=== PATIENT | female | born 1955 | race Caucasian/White ===

== ENCOUNTER 2017-11-17 10:07 | Emergency (ER) | payer MEDICARE, MEDICAID ==
[2017-11-17 10:24] VITALS: BP 143/95
[2017-11-17] MEDS ORDERED: Ondansetron 4 MG/2 ML SDV IVPUSH ONE (11:21)
[2017-11-17] MEDS ORDERED: Ketorolac 30 MG/ML SDV IVPUSH ONE (11:21)
--- NOTE | 2017-11-17 11:24 | EDM.PDOC ---
ED HPI GENERAL MEDICAL PROBLEM - General Chief Complaint: Flank Pain Stated Complaint: PAIN ON LEFT SIDE FEELS LIKE VOMITING Time Seen by Provider: 11/17/17 11:08 Source of Information: Reports: Patient History Limitations: Reports: No Limitations - History of Present Illness INITIAL COMMENTS - FREE TEXT/NARRATIVE: 62 yo female presents to ER with left flank pain radiating into left upper ABD. pain started yesterday and has progressively worsened. She does have a hx of kidney stones. She does not feel that this is a kidney stone. Last BM was this AM small. denies dysuria. nausea without emesis. afebrile. 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 History: Reports: Musculoskeletal History: Reports: Fracture Neurological History: Reports: Migraines Psychiatric History: Reports: Addiction, Depression, Other (See Below) Other Psychiatric History: recovery alcoholic - Infectious Disease History Infectious Disease History: Reports: Chicken Pox - Past Surgical History HEENT Surgical History: Reports: Adenoidectomy, Tonsillectomy GI Surgical History: Reports: Appendectomy, Cholecystectomy, Hernia, Abdominal Musculoskeletal Surgical History: Reports: Arthroscopic Knee, Shoulder Surgery Social & Family History - Tobacco Use Smoking Status *Q: Current Every Day Smoker Years of Tobacco use: 40 Packs/Tins Daily: 0.5 - Caffeine Use Caffeine Use: Reports: Coffee, Soda - Recreational Drug Use Recreational Drug Use: No - Living Situation & Occupation Living situation: Reports: with Significant Other Occupation: Disabled ED ROS GENERAL - Review of Systems Review Of Systems: See Below Constitutional: Denies: Fever, Chills, Malaise Respiratory: Denies: Shortness of Breath, Wheezing Cardiovascular: Denies: Chest Pain GI/Abdominal: Reports: Abdominal Pain, Decreased Appetite, Nausea. Denies: Diarrhea, Vomiting : Reports: Flank Pain. Denies: Dysuria, Hematuria Musculoskeletal: Reports: Back Pain Neurological: Denies: Dizziness, Headache ED EXAM, GI/ABD - Physical Exam Exam: See Below Exam Limited By: No Limitations General Appearance: Alert, WD/WN, No Apparent Distress Head: Atraumatic, Normocephalic Respiratory/Chest: No Respiratory Distress, Lungs Clear, Normal Breath Sounds, Chest Non-Tender. No: Crackles, Rhonchi, Wheezing Cardiovascular: Regular Rate, Rhythm, No Murmur, No Rub GI/Abdominal Exam: Normal Bowel Sounds, Soft, No Distention, Tender (RUQ) Back Exam: CVA Tenderness (L). No: CVA Tenderness (R), Vertebral Tenderness Neurological: Alert, Oriented Psychiatric: Normal Affect, Normal Mood Skin Exam: Warm, Dry, Intact Course - Vital Signs Last Recorded V/S: Last Vital Signs Temp 35.8 C 11/17/17 10:25 Pulse 73 11/17/17 10:25 Resp 17 11/17/17 10:25 BP 143/95 H 11/17/17 10:25 Pulse Ox 93 L 11/17/17 10:25 - Orders/Labs/Meds Orders: Active Orders 24 hr Category Date Time Status Sodium Chloride 0.9% [Normal Saline] 1,000 ml Med 11/17/17 11:30 Active IV ASDIRECTED Medication Orders Sodium Chloride (Normal Saline) 1,000 mls @ 999 mls/hr IV ASDIRECTED ALDA Last Admin: 11/17/17 11:36 Dose: 999 mls/hr Labs: Laboratory Tests 11/17/17 11/17/17 11/17/17 Range/Units 11:22 11:23 11:23 WBC 7.7 (4.5-11.0) K/uL RBC 5.36 (3.30-5.50) M/uL Hgb 16.3 H D (12.0-15.0) g/dL Hct 49.2 H (36.0-48.0) % MCV 92 (80-98) fL MCH 30 (27-31) pg MCHC 33 (32-36) % Plt Count 214 (150-400) K/uL Neut % (Auto) 56 (36-66) % Lymph % (Auto) 32 (24-44) % [place] % (Auto) 10 H (2-6) % Eos % (Auto) 2 (2-4) % Baso % (Auto) 0 (0-1) % Sodium 140 (140-148) mmol/L Potassium 4.4 (3.6-5.2) mmol/L Chloride 106 (100-108) mmol/L Carbon Dioxide 26 (21-32) mmol/L Anion Gap 8.0 (5.0-14.0) mmol/L BUN 21 H (7-18) mg/dL Creatinine 1.1 H (0.6-1.0) mg/dL Est Cr Clr Drug Dosing 44.43 mL/min Estimated GFR (MDRD) 50 L (>60) Glucose 99 (74-106) mg/dL Calcium 9.2 (8.5-10.1) mg/dL Total Bilirubin 0.5 (0.2-1.0) mg/dL AST 26 (15-37) U/L ALT 44 (12-78) U/L Alkaline Phosphatase 139 H (46-116) U/L Total Protein 6.9 (6.4-8.2) g/dL Albumin 3.4 (3.4-5.0) g/dL Globulin 3.5 (2.3-3.5) g/dL Albumin/Globulin Ratio 1.0 L (1.2-2.2) Lipase (73-393) U/L Urine Color Yellow Urine Appearance Slightly cloudy Urine pH 5.0 (4.5-8.0) Ur Specific [place] 1.020 (1.008-1.030) Urine Protein Negative (NEGATIVE) mg/dL Urine Glucose (UA) Normal (NEGATIVE) mg/dL Urine Ketones Negative (NEGATIVE) mg/dL Urine Occult Blood Negative (NEGATIVE) Urine Nitrite Negative (NEGATIVE) Urine Bilirubin Small (NEGATIVE) Urine Urobilinogen Normal (NORMAL) mg/dL Ur Leukocyte Esterase Negative (NEGATIVE) Urine RBC 0-5 (0-5) Urine WBC 0-5 (0-5) Ur Epithelial Cells Moderate Amorphous Sediment Not seen Urine Bacteria Rare Urine Mucus Not seen 11/17/17 Range/Units 12:40 WBC (4.5-11.0) K/uL RBC (3.30-5.50) M/uL Hgb (12.0-15.0) g/dL Hct (36.0-48.0) % MCV (80-98) fL MCH (27-31) pg MCHC (32-36) % Plt Count (150-400) K/uL Neut % (Auto) (36-66) % Lymph % (Auto) (24-44) % [place] % (Auto) (2-6) % Eos % (Auto) (2-4) % Baso % (Auto) (0-1) % Sodium (140-148) mmol/L Potassium (3.6-5.2) mmol/L Chloride (100-108) mmol/L Carbon Dioxide (21-32) mmol/L Anion Gap (5.0-14.0) mmol/L BUN (7-18) mg/dL Creatinine (0.6-1.0) mg/dL Est Cr Clr Drug Dosing mL/min Estimated GFR (MDRD) (>60) Glucose (74-106) mg/dL Calcium (8.5-10.1) mg/dL Total Bilirubin (0.2-1.0) mg/dL AST (15-37) U/L ALT (12-78) U/L Alkaline Phosphatase (46-116) U/L Total Protein (6.4-8.2) g/dL Albumin (3.4-5.0) g/dL Globulin (2.3-3.5) g/dL Albumin/Globulin Ratio (1.2-2.2) Lipase 264 (73-393) U/L Urine Color Urine Appearance Urine pH (4.5-8.0) Ur Specific [place] (1.008-1.030) Urine Protein (NEGATIVE) mg/dL Urine Glucose (UA) (NEGATIVE) mg/dL Urine Ketones (NEGATIVE) mg/dL Urine Occult Blood (NEGATIVE) Urine Nitrite (NEGATIVE) Urine Bilirubin (NEGATIVE) Urine Urobilinogen (NORMAL) mg/dL Ur Leukocyte Esterase (NEGATIVE) Urine RBC (0-5) Urine WBC (0-5) Ur Epithelial Cells Amorphous Sediment Urine Bacteria Urine Mucus Meds: Medications Generic Name Dose Route Start Last Admin Trade Name Freq PRN Reason Stop Dose Admin Sodium Chloride 1,000 mls @ 999 mls/hr 11/17/17 11:30 11/17/17 11:36 Normal Saline IV 999 mls/hr ASDIRECTED ALDA Administration Discontinued Medications Generic Name Dose Route Start Last Admin Trade Name Freq PRN Reason Stop Dose Admin Al Hydroxide/Mg Hydroxide 15 0 ml 11/17/17 12:40 11/17/17 13:05 ml/ Lidocaine HCl 15 ml PO 11/17/17 12:41 15 ml ONETIME ONE Administration Hydromorphone HCl 0.5 mg 11/17/17 12:03 11/17/17 12:10 Dilaudid IVPUSH 11/17/17 12:04 0.5 mg ONETIME ONE Administration Ketorolac Tromethamine 30 mg 11/17/17 11:21 11/17/17 11:35 Toradol IVPUSH 11/17/17 11:22 30 mg ONETIME ONE Administration Ondansetron HCl 4 mg 11/17/17 11:21 11/17/17 11:35 Zofran IVPUSH 11/17/17 11:22 4 mg ONETIME ONE Administration Pantoprazole Sodium 40 mg 11/17/17 12:40 11/17/17 13:05 Protonix Iv IVPUSH 11/17/17 12:41 40 mg ONETIME ONE Administration - Re-Assessments/Exams Free Text/Narrative Re-Assessment/Exam: 11/17/17 13:32 dramatic relief of pain with GI cocktail. pt does take nexium on a daily basis. Departure - Departure Time of Disposition: 13:32 Disposition: Home, Self-Care 01 Condition: Good Clinical Impression: Epigastric pain - Discharge Information Referrals: PCP,None [Primary Care Provider] - Forms: ED Department Discharge Additional Instructions: continue daily nexium advance diet as tolerated increase fluid intake with goal of 1.5 Liters per day follow-up with primary care or return to ER with new or worsening symptoms - My Orders Last 24 Hours: My Active Orders 11/17/17 11:30 Sodium Chloride 0.9% [Normal Saline] 1,000 ml IV ASDIRECTED - Assessment/Plan Last 24 Hours: My Active Orders 11/17/17 11:30 Sodium Chloride 0.9% [Normal Saline] 1,000 ml IV ASDIRECTED
[2017-11-17] MEDS ORDERED: Sodium Chloride 0.9% 1,000 ML IV SCH (11:30)
[2017-11-17] MEDS ORDERED: HYDROmorphone 0.5 MG/0.5 ML Syringe IVPUSH ONE (12:03)
[2017-11-17] MEDS ORDERED: Pantoprazole 40 MG Vial IVPUSH ONE (12:40)
[2017-11-17] MEDS ORDERED: Alum Hydrox/Mag Hydrox/Simeth 15 ML, Lidocaine 2% 15 ML PO ONE ×2 (12:40)
== END 2017-11-17 13:50 | disposition home or self-care (01) ==
LOC: JP.ED 10:07
DX: R10.13 Epigastric pain (principal); F17.210 Nicotine dependence, cigarettes, uncomplicated; Z88.5 Allergy status to narcotic agent; Z79.899 Other long term (current) drug therapy
CPT/HCPCS: 36415; 80053; 81001; 83690; 85025; 96361; 96374; 96375; 99284; A9270; C9113; J1170; J1885; J2405; J7030

== ENCOUNTER 2020-09-02 05:55 | Day surgery (SDC) | payer MEDICARE, MEDICAID ==
[2020-09-02] MEDS ORDERED: Albuterol/Ipratropium 3.0-0.5 MG/3 ML Neb Soln NEB ONE (06:25)
[2020-09-02] MEDS ORDERED: fentaNYL 100 MCG/2 ML SDV ONE (07:20)
[2020-09-02] MEDS ORDERED: Midazolam 1 MG/ML 2 ML SDV ONE (07:20)
[2020-09-02] MEDS ORDERED: Propofol 200 MG/20 ML SDV ONE (07:20)
[2020-09-02] MEDS ORDERED: Dextrose 5%-Lactated Ringers 1,000 ML IV SCH (08:15)
[2020-09-02 09:38] VITALS: BP 134/89; PULSE 73
--- NOTE | 2020-09-18 13:23 | OR ---
DATE OF PROCEDURE: 09/02/2020 SURGEON: Chino Vila MD PREOPERATIVE DIAGNOSIS: Worsening gastroesophageal reflux disease. POSTOPERATIVE DIAGNOSES: 1. Large hiatal hernia with extensive inflammation of the larynx and pharynx and ulcerated gastroesophageal reflux disease refractory to medical management. 2. Moderate antral gastritis. OPERATIVE PROCEDURES: Esophagogastroduodenoscopy with: 1. Biopsy of esophagogastric junction for histologic evaluation. 2. Biopsies of antrum for CLOtest. ANESTHESIA: IV sedation. INDICATIONS FOR PROCEDURE: This is a 65-year-old presenting with worsening gastroesophageal disease. The patient's previous surgical history includes Marie-en-Y gastric bypass, which was subsequently reversed due to ongoing problems with stricturing. She now presents with severe reflux symptoms despite ongoing medical management. This includes waking up with coughing up bilious-type material as well as a chronically irritated larynx and pharynx clinically. The plan is to proceed with upper GI endoscopy with biopsies and/or dilation as indicated. Potential risks including bleeding and perforation were discussed, and the patient wishes to proceed. DETAILS OF PROCEDURE: The patient was taken to the operating room, placed in a left lateral decubitus position. IV sedation was administered, after which the upper GI endoscope was passed orally through the length of the esophagus and stomach with retroflexion view of the fundus and thereafter through the pyloric channel into the junction of third and fourth portions of the duodenum. Findings included markedly reddened larynx and pharynx. As one passed into the esophagus, the upper esophageal sphincter and esophageal body were unremarkable; however, as one passed into the more distal esophagus, there was extensive ulcerated gastroesophageal reflux disease. The areas of ulcer were covered with fibrinous exudate. There was no stricturing, plaquing, or other signs of neoplasia. 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 Within the antrum, there was some patchy redness to moderate extent. The pyloric channel and visualized portion of the duodenum were unremarkable. At this point, biopsies were obtained from the antrum and sent for CLOtest for H pylori. Multiple biopsies were obtained from the distal esophagus and sent for histologic evaluation. Minimal bleeding from the biopsy sites was seen, and the procedure was then concluded. Plan will be to see the patient on Saturday regarding repair of the large hiatal hernia, which was seen at the time of the upper endoscopy today most likely by means of treating the hiatal hernia and then a proximal gastrectomy with Marie-en-Y reconstruction. We will review this with the patient as well as go over dietary guidelines in the upcoming appointment. Chino Vila MD /[id number]
== END 2020-09-02 10:02 | disposition home or self-care (01) ==
LOC: JP.SDS 05:55
PROVIDERS: ATTEND Surgery
DX: K21.9 Gastro-esophageal reflux disease without esophagitis (principal); K44.9 Diaphragmatic hernia without obstruction or gangrene; K29.70 Gastritis, unspecified, without bleeding; J06.0 Acute laryngopharyngitis; K22.10 Ulcer of esophagus without bleeding; F17.200 Nicotine dependence, unspecified, uncomplicated; E78.5 Hyperlipidemia, unspecified; E66.9 Obesity, unspecified; J45.909 Unspecified asthma, uncomplicated; Z88.5 Allergy status to narcotic agent; Z68.41 Body mass index [BMI] 40.0-44.9, adult
CPT/HCPCS: 43239; 87081; 88305; 94640; J2250; J2704; J3010; J7121; J7620-GY

== ENCOUNTER 2020-09-13 05:32 | Inpatient (IN) | payer MEDICARE, MEDICAID ==
[~2020-09-13 05:32] MED LIST: Scopolamine 1.5 MG Transdermal Patch TOP ONE
[2020-09-13] MEDS ORDERED: Acetaminophen 500 MG Tab PO ONE (05:40)
[2020-09-13] MEDS ORDERED: Celecoxib 200 MG Cap PO ONE (05:40)
[2020-09-13] MEDS ORDERED: Dextrose 5%-Lactated Ringers 1,000 ML IV SCH (06:00)
[2020-09-13] MEDS ORDERED: Albuterol/Ipratropium 3.0-0.5 MG/3 ML Neb Soln NEB ONE ×2 (06:30→12:30)
[2020-09-13] MEDS ORDERED: cefOXitin 2 GM in Sodium Chloride 0.9% 50 ML IV ONE (06:30)
[2020-09-13] MEDS ORDERED: Succinylcholine 200 MG/10 ML MDV ONE (07:07)
[2020-09-13] MEDS ORDERED: Ondansetron 4 MG/2 ML SDV ONE (07:07)
[2020-09-13] MEDS ORDERED: Dexamethasone 4 MG/ML SDV ONE (07:07)
[2020-09-13] MEDS ORDERED: Propofol 200 MG/20 ML SDV ONE (07:07)
[2020-09-13] MEDS ORDERED: Glycopyrrolate 0.2 MG/ML 5 ML MDV ONE (07:07)
[2020-09-13] MEDS ORDERED: fentaNYL 250 MCG/5 ML SDV ONE ×2 (07:07→08:16)
[2020-09-13] MEDS ORDERED: Rocuronium 50 MG/5 ML Vial ONE ×2 (07:07→09:29)
[2020-09-13] MEDS ORDERED: Neostigmine Methylsulfate 1 MG/ML 5 ML Syringe ONE (07:07)
[2020-09-13] MEDS ORDERED: Ketamine 500 MG/5 ML MDV IV SCH (07:30)
[2020-09-13] MEDS ORDERED: Magnesium Sulfate 3 GM in Sodium Chloride 0.9% 100 ML IV SCH ×2 (07:30)
[2020-09-13] MEDS ORDERED: Ketamine 50 MG in Sodium Chloride 0.9% 49.5 ML IV SCH (07:30)
[2020-09-13] MEDS ORDERED: Magnesium Sulfate 3.5 GM in Sodium Chloride 0.9% 250 ML IV ONE ×2 (08:00)
[2020-09-13] MEDS: cefOXitin 2 GM Vial ONE ×3 (08:30→11:30)
[2020-09-13] MEDS ORDERED: Labetalol 20 MG/4 ML Syringe ONE (09:31)
[2020-09-13] MEDS ORDERED: Lactated Ringers 1,000 ML ONE ×2 (09:42→10:30)
[2020-09-13] MEDS: Meropenem 500 MG SDV ONE ×2 (11:00→11:30)
[2020-09-13] MEDS ORDERED: fentaNYL 100 MCG/2 ML SDV ONE (11:02)
[2020-09-13] MEDS ORDERED: cefOXitin 2 GM Vial ONE (11:35)
[2020-09-13] MEDS ORDERED: hydrOXYzine HCL 100 MG/2 ML SDV IM ONE (12:28)
[2020-09-13] MEDS ORDERED: fentaNYL 100 MCG/2 ML SDV IVPUSH ONE (12:28)
[2020-09-13] MEDS ORDERED: Non-Formulary Medication 1 Each IV ONE (13:38)
[2020-09-13] MEDS: Dextrose 5%-Lactated Ringers 1,000 ML IV SCH (13:45)
[2020-09-13] MEDS ORDERED: Labetalol 20 MG/4 ML Syringe IVPUSH PRN (14:00)
[2020-09-13] MEDS ORDERED: Metoclopramide 10 MG/2 ML SDV IVPUSH PRN (14:00)
[2020-09-13] MEDS ORDERED: Albuterol/Ipratropium 3.0-0.5 MG/3 ML Neb Soln INH PRN (14:00)
[2020-09-13] MEDS ORDERED: Acetaminophen 500 MG Tab PO PRN (14:00)
[2020-09-13] MEDS ORDERED: Calcium Gluconate 10% 1 GM/10 ML SDV IVPUSH PRN (14:00)
[2020-09-13] MEDS ORDERED: cefOXitin 2 GM in Sodium Chloride 0.9% 50 ML IV SCH (14:00)
[2020-09-13] MEDS ORDERED: diphenhydrAMINE 50 MG/ML SDV IVPUSH PRN (14:00)
[2020-09-13] MEDS ORDERED: Ondansetron 4 MG/2 ML SDV IVPUSH PRN (14:00)
[2020-09-13] MEDS: Albuterol/Ipratropium 3.0-0.5 MG/3 ML Neb Soln INH SCH ×2 (14:21→22:19)
[2020-09-13] MEDS: hydrOXYzine HCL 100 MG/2 ML SDV IM PRN (14:39)
[2020-09-13] MEDS ORDERED: Naloxone 0.4 MG/ML SDV IV PRN (15:00)
[2020-09-13] MEDS: HYDROmorphone/Normal Saline 15 MG/30 ML PCA IV PRN (15:04)
[2020-09-13] MEDS ORDERED: MVI, Adult with Vitamin K 10 ML, Thiamine 200 MG, Zinc/Copper/Manganese/Selenium 1 ML i... IV SCH ×4 (16:00)
[2020-09-13] MEDS ORDERED: Pantoprazole 40 MG Vial IVPUSH SCH (16:00)
[2020-09-13] MEDS: Acetaminophen 500 MG Tab PO SCH (16:35)
[2020-09-13] MEDS: cefOXitin 2 GM in Sodium Chloride 0.9% 50 ML IV SCH ×2 (17:26→22:10)
[2020-09-13] MEDS: Heparin Sodium 5,000 Units/ML Vial SUBCUT SCH (22:10)
[2020-09-14] MEDS: Acetaminophen 500 MG Tab PO SCH ×4 (00:07→21:06)
[2020-09-14] MEDS: ADVAIR 250/50 INHALER (PTOM) INH SCH ×3 (00:07→21:06)
[2020-09-14] MEDS: Montelukast 5 MG Tab.Chew PO SCH ×2 (00:07→21:06)
[2020-09-14] MEDS: busPIRone 10 MG Tab PO SCH ×2 (00:07→09:08)
[2020-09-14] MEDS ORDERED: Iopamidol 612 MG/ML 50 ML SDV IV PRN (03:47)
[2020-09-14] MEDS: Dextrose 5%-Lactated Ringers 1,000 ML IV SCH ×2 (04:51→09:33)
[2020-09-14] MEDS: cefOXitin 2 GM in Sodium Chloride 0.9% 50 ML IV SCH ×4 (04:51→22:11)
[2020-09-14] MEDS: Albuterol/Ipratropium 3.0-0.5 MG/3 ML Neb Soln INH SCH ×4 (07:19→21:05)
[2020-09-14] MEDS ORDERED: Nicotine 14 MG/24 Hr Patch TRDERM SCH (09:00)
[2020-09-14] MEDS: hydrOXYzine HCL 100 MG/2 ML SDV IM PRN (09:02)
[2020-09-14] MEDS: Heparin Sodium 5,000 Units/ML Vial SUBCUT SCH ×2 (09:06→21:05)
[2020-09-14] MEDS: Celecoxib 200 MG Cap PO SCH ×2 (09:09→21:06)
[2020-09-14] MEDS: Aspirin 81 MG Tab.Chew PO SCH (09:09)
[2020-09-14] MEDS: Cetirizine 10 MG Tab PO SCH (09:09)
[2020-09-14] MEDS: SCOPOLAMINE PATCH CHECK TOP SCH (09:13)
--- NOTE | 2020-09-14 09:16 | CR ---
UGI Limited HISTORY: Postbariatric surgery FINDINGS: Patient swallowed water-soluble contrast. Upright views of the abdomen show no evidence of extravasation or obstruction. There are 2 surgical drains in the left upper quadrant. IMPRESSION: Status post bariatric surgery No extravasation or obstruction seen
[2020-09-14] MEDS: Cyclobenzaprine 10 MG Tab PO PRN (11:09)
[2020-09-14] MEDS ORDERED: LORazepam 2 MG/ML SDV IVPUSH PRN (12:05)
--- NOTE | 2020-09-14 12:35 | PN ---
DATE OF SERVICE: 09/14/2020 SUBJECTIVE: Gabrielle is postoperative day #1. Vital signs have been stable. Her pain has been controlled with the CHARTER PILOT. Oral intake on a step 1 diet is 240. Urine output via Stewart catheter is 1425. She did have 1 emesis of 150 mL and MOISE drains put out 70 and 125 mL of a light red drainage. REVIEW OF SYSTEMS: Remainder of review of systems negative for any pertinent positives and negatives. OBJECTIVE: GENERAL: Gabrielle Tucker is a pleasant 65-year-old female. She is alert and orientated. VITAL SIGNS: TPR is 97.1, 82, 18, blood pressure 131/75. HEENT: Negative. NECK: Supple. HEART: Regular rate and rhythm. LUNGS: Revealed coarse rhonchi. She does have good air exchange. Has a loose sounding cough. ABDOMEN: Dressing dry and intact. Abdominal binder on. EXTREMITIES: Without peripheral edema. ASSESSMENT: Exploratory laparotomy with: 1. Esophagogastrectomy with Marie-en-Y esophagojejunostomy. 2. Repair of recurrent paraesophageal hernia. 3. Partial left hepatic lobectomy. 4. Small-bowel resection. 5. Placement of Interceed mesh. POSTOPERATIVE DIAGNOSES: 1. Severe reflux with recurrent paraesophageal hernia. 2. Very extensive intraabdominal adhesions. 3. Section of the small bowel ischemic after takedown of adhesions. 4. Lateral aspect hepatic lobe extensively devascularized after dissection. 5. Date of procedure: 09/13/2020. Surgeon: Chino Vila MD. PLAN: 1. Decrease IV of D5 LR to 100 mL/h at noon today. 2. Leave Stewart catheter in for increased creatinine and to closely monitor urinary output. 3. Nicotine patch 14 mg q.24 hours. 4. Continue use of incentive spirometer and ambulation. 5. We will evaluate p.r.n. or in a.m. Marguerite Farias PA-C /[id number]
[2020-09-14] MEDS ORDERED: MVI, Adult with Vitamin K 10 ML, Thiamine 200 MG, Zinc/Copper/Manganese/Selenium 1 ML i... IV SCH ×4 (16:00)
[2020-09-14] MEDS: Pantoprazole 40 MG Delayed-Release Granules 1 Packet PO SCH (16:33)
--- NOTE | 2020-09-14 17:32 | PCM.EKG ---
#1 Interpretation EKG Date: 09/13/20 Time: 06:45 Rhythm: NSR Rate (Beats/Min): 69 [place]: LAD-Left [place] Deviation P-Wave: Present QRS: Other (Delayed R wave progression precordial leads) ST-T: Normal QT: Normal Comparison: NA - No Prior EKG
[2020-09-15] MEDS: cefOXitin 2 GM in Sodium Chloride 0.9% 50 ML IV SCH ×2 (05:09→11:23)
[2020-09-15] MEDS: Dextrose 5%-Lactated Ringers 1,000 ML IV SCH ×2 (05:10→15:02)
[2020-09-15] MEDS: Acetaminophen 500 MG Tab PO SCH ×3 (05:43→22:11)
[2020-09-15] MEDS: Albuterol/Ipratropium 3.0-0.5 MG/3 ML Neb Soln INH SCH ×4 (07:16→20:28)
[2020-09-15] MEDS: ADVAIR 250/50 INHALER (PTOM) INH SCH ×2 (07:37→20:28)
[2020-09-15] MEDS: Celecoxib 200 MG Cap PO SCH ×2 (08:34→20:28)
[2020-09-15] MEDS: Heparin Sodium 5,000 Units/ML Vial SUBCUT SCH ×2 (08:34→20:28)
[2020-09-15] MEDS: Aspirin 81 MG Tab.Chew PO SCH (08:34)
[2020-09-15] MEDS: Cetirizine 10 MG Tab PO SCH (08:34)
[2020-09-15] MEDS: Nicotine 21 MG/24 Hr Patch TRDERM SCH ×2 (08:35→21:00)
[2020-09-15] MEDS: SCOPOLAMINE PATCH CHECK TOP SCH (08:35)
[2020-09-15] MEDS ORDERED: Cyanocobalamin (Vitamin B12) 1,000 MCG/ML SDV IM ONE (09:00)
--- NOTE | 2020-09-15 11:14 | PN ---
DATE OF SERVICE: 09/15/2020 SUBJECTIVE: Gabrielle had an episode of anxiety yesterday, but resolved quickly. She has been afebrile. Oral intake on a step 1 diet was 1080. Urine output via Stewart catheter 850. MOISE drains have put out 60 and 130 respectively. She reports she has been up, ambulating. Still has quite a bit of pain, was coughing. REVIEW OF SYSTEMS: Remainder of review of systems negative for any pertinent positives and negatives. OBJECTIVE: GENERAL: Gabrielle Tucker is a pleasant 65-year-old female. VITAL SIGNS: TPR is 97.6, 86, 18, blood pressure is 135/82, O2 is 98% on 4 L of nasal cannula. HEENT: Negative. NECK: Supple. HEART: Regular rate and rhythm. LUNGS: Reveal rhonchi with coughing. She does have good air exchange. ABDOMEN: Dressings dry and intact. MOISE drains intact and abdominal binder is on. EXTREMITIES: Without peripheral edema. ASSESSMENT: 1. Exploratory laparotomy with: a. Esophagogastrectomy with Marie-en-Y esophagojejunostomy. b. Repair of recurrent paraesophageal hernia. c. Partial left hepatic lobectomy. d. Small-bowel resection. e. Placement of Interceed mesh. POSTOPERATIVE DIAGNOSES: 1. Severe reflux with recurrent paraesophageal hernia. 2. Very extensive intraabdominal adhesions. 3. Section of small bowel ischemic after takedown of adhesions. 4. Lateral aspect hepatic lobe extensively devascularized after dissection. 5. Date of procedure: 09/13/2020. Surgeon: Chino Vila MD. PLAN: 1. Step 2 gastric bypass diet without cereal. 2. Discontinue Stewart. 3. Check CBC, CMP, mag, phos in a.m. 4. May shower. 5. Increase nicotine patch to 21 mg daily. 6. Continue use of incentive spirometer. 7. We will evaluate p.r.n. or in a.m. Marguerite Farias PA-C /[id number]
[2020-09-15] MEDS: Bisacodyl 5 MG Tab PO SCH ×2 (12:06→20:28)
[2020-09-15] MEDS: Docusate Sodium 100 MG Cap PO SCH ×2 (12:06→20:28)
[2020-09-15] MEDS: Pantoprazole 40 MG Delayed-Release Granules 1 Packet PO SCH (17:01)
[2020-09-15] MEDS: Cyclobenzaprine 10 MG Tab PO PRN (17:21)
[2020-09-15] MEDS: Montelukast 5 MG Tab.Chew PO SCH (20:28)
[2020-09-15] MEDS: Ondansetron 4 MG Tab.DIS PO PRN (22:29)
[2020-09-16] MEDS: Dextrose 5%-Lactated Ringers 1,000 ML IV SCH (01:05)
[2020-09-16] MEDS: HYDROmorphone/Normal Saline 15 MG/30 ML PCA IV PRN (01:15)
[2020-09-16] MEDS: Acetaminophen 500 MG Tab PO SCH ×3 (05:49→21:13)
[2020-09-16] MEDS: Albuterol/Ipratropium 3.0-0.5 MG/3 ML Neb Soln INH SCH ×4 (07:11→21:32)
[2020-09-16] MEDS: ADVAIR 250/50 INHALER (PTOM) INH SCH ×2 (07:11→21:28)
[2020-09-16] MEDS ORDERED: Magnesium Hydroxide 400 MG/5 ML Susp 30 ML Cup PO PRN (07:19)
[2020-09-16] MEDS: HYDROmorphone 2 MG Tab PO PRN ×2 (08:18→14:21)
[2020-09-16] MEDS: Heparin Sodium 5,000 Units/ML Vial SUBCUT SCH ×2 (08:27→21:12)
[2020-09-16] MEDS: Magnesium Sulfate/Water 2 GM/50 ML BAG IV SCH ×3 (08:30→20:59)
[2020-09-16] MEDS ORDERED: Bisacodyl 5 MG Tab PO SCH (09:00)
[2020-09-16] MEDS: Aspirin 81 MG Tab.Chew PO SCH (09:41)
[2020-09-16] MEDS: Celecoxib 200 MG Cap PO SCH ×2 (09:42→21:23)
[2020-09-16] MEDS: Bisacodyl 5 MG Tab PO SCH ×2 (09:42→21:23)
[2020-09-16] MEDS: Docusate Sodium 100 MG Cap PO SCH ×2 (09:42→21:24)
[2020-09-16] MEDS: Nicotine 21 MG/24 Hr Patch TRDERM SCH (09:43)
[2020-09-16] MEDS: Cetirizine 10 MG Tab PO SCH (09:43)
--- NOTE | 2020-09-16 10:54 | PN ---
DATE OF SERVICE: 09/16/2020 SUBJECTIVE: Gabrielle started bowel stimulation yesterday. She is passing flatus but no BM. Vital signs have been stable. Pain has been managed with the GROUND SUPPORT EQUIPMENT FITTER. She does not use it very often. Oral intake 1610. Urine output is 1400. MOISE drains have put out 40 and 50 of a serosanguineous drainage. REVIEW OF SYSTEMS: Remainder of review of systems negative for any pertinent positives and negatives. OBJECTIVE: GENERAL: Gabrielle Tucker is a pleasant 65-year-old female. She is alert and orientated. VITAL SIGNS: TPR 96.5, 103, 16, blood pressure 151/72. HEENT: Negative. NECK: Supple. HEART: Regular rate and rhythm. LUNGS: Clear. ABDOMEN: Aquacel dressing is on. MOISE drain intact. EXTREMITIES: Without peripheral edema. ASSESSMENT: Exploratory laparotomy with: 1. Esophagogastrectomy with Marie-en-Y esophagojejunostomy. 2. Repair of recurrent paraesophageal hernia. 3. Partial left hepatic lobectomy. 4. Small-bowel resection. 5. Placement of Interceed mesh. POSTOPERATIVE DIAGNOSES: 1. Severe reflux with recurrent paraesophageal hernia. 2. Very extensive intraabdominal adhesions. 3. Section of small bowel ischemic after takedown of adhesions. 4. Lateral aspect hepatic lobe extensively devascularized after dissection. 5. Date of procedure: 09/13/2020. Surgeon: Chino Vila MD. PLAN: 1. Magnesium 2 g IV q.6 hours x48 hours. 2. Discontinue GROUND SUPPORT EQUIPMENT FITTER and continuous pulse ox. 3. Dilaudid 2 to 4 mg every 4 hours p.r.n. pain. 4. Saline lock IV. 5. Albumin 25 g IV daily x2 days. 6. Check CBC, CMP, and phos in a.m. 7. Dietary consult for step 2 gastric bypass diet. 8. Milk of Magnesia 30 mL daily p.r.n. constipation. 9. Have family member bring CPAP to use at night. 10.To continue to wean off O2 as tolerated. 11.We will evaluate p.r.n. or in a.m. Marguerite Farias PA-C /[id number]
[2020-09-16] MEDS: Pantoprazole 40 MG Delayed-Release Granules 1 Packet PO SCH (15:13)
[2020-09-16] MEDS: Ondansetron 4 MG Tab.DIS PO PRN (17:36)
[2020-09-16] MEDS: Montelukast 5 MG Tab.Chew PO SCH (21:24)
[2020-09-17] MEDS: Magnesium Sulfate/Water 2 GM/50 ML BAG IV SCH ×3 (02:15→13:57)
[2020-09-17] MEDS: Acetaminophen 500 MG Tab PO SCH ×3 (05:46→21:42)
[2020-09-17] MEDS: Albuterol/Ipratropium 3.0-0.5 MG/3 ML Neb Soln INH SCH ×4 (07:05→21:50)
[2020-09-17] MEDS: ADVAIR 250/50 INHALER (PTOM) INH SCH ×2 (07:06→21:42)
[2020-09-17] MEDS ORDERED: Bisacodyl 10 MG Supp RECTAL PRN (07:22)
[2020-09-17] MEDS ORDERED: Sodium Phosphate,Monobasic/Sodium Phosphate,Dibasic Enema 133 ML Bottle RECTAL PRN (07:23)
[2020-09-17] MEDS: HYDROmorphone 2 MG Tab PO PRN ×3 (07:57→21:49)
[2020-09-17] MEDS: Heparin Sodium 5,000 Units/ML Vial SUBCUT SCH ×2 (08:00→19:52)
[2020-09-17] MEDS: Celecoxib 200 MG Cap PO SCH ×2 (08:08→21:41)
[2020-09-17] MEDS: Docusate Sodium 100 MG Cap PO SCH ×2 (08:08→21:41)
[2020-09-17] MEDS: Cetirizine 10 MG Tab PO SCH (08:08)
[2020-09-17] MEDS: Bisacodyl 5 MG Tab PO SCH ×2 (08:08→21:41)
[2020-09-17] MEDS: Aspirin 81 MG Tab.Chew PO SCH (08:08)
[2020-09-17] MEDS: Nicotine 21 MG/24 Hr Patch TRDERM SCH (08:09)
[2020-09-17] MEDS: Pantoprazole 40 MG Delayed-Release Granules 1 Packet PO SCH (15:52)
[2020-09-17] MEDS: Montelukast 5 MG Tab.Chew PO SCH (21:42)
[2020-09-18] MEDS: Acetaminophen 500 MG Tab PO SCH (05:33)
[2020-09-18] MEDS: HYDROmorphone 2 MG Tab PO PRN (05:38)
[2020-09-18] MEDS: ADVAIR 250/50 INHALER (PTOM) INH SCH (07:03)
[2020-09-18] MEDS: Albuterol/Ipratropium 3.0-0.5 MG/3 ML Neb Soln INH SCH (07:03)
[2020-09-18 07:40] VITALS: BP 184/81; PULSE 88
[2020-09-18] MEDS: Heparin Sodium 5,000 Units/ML Vial SUBCUT SCH (07:41)
[2020-09-18] MEDS ORDERED: Magnesium Hydroxide 400 MG/5 ML Susp 30 ML Cup PO PRN (08:05)
[2020-09-18] MEDS: Aspirin 81 MG Tab.Chew PO SCH (08:28)
[2020-09-18] MEDS: Celecoxib 200 MG Cap PO SCH (08:28)
[2020-09-18] MEDS: Docusate Sodium 100 MG Cap PO SCH (08:29)
[2020-09-18] MEDS: Cetirizine 10 MG Tab PO SCH (08:29)
[2020-09-18] MEDS: Bisacodyl 5 MG Tab PO SCH (08:29)
[2020-09-18] MEDS: Nicotine 21 MG/24 Hr Patch TRDERM SCH (08:30)
--- NOTE | 2020-09-19 00:42 | PN ---
DATE OF SERVICE: 09/17/2020 The patient has been afebrile with stable vital signs. She is still having some crampy pain and has not moved her bowels but is passing some gas . Otherwise, oral intake is fairly good, and she is tolerating oral pain medicines. She will likely be ready for discharge home tomorrow. Chino Vila MD /[id number]
--- NOTE | 2020-09-19 10:49 | DISCH ---
FINAL DIAGNOSES: 1. Severe reflux with recurrent paraesophageal diaphragmatic hernia. 2. Very extensive intraabdominal adhesions. 3. Resection of small bowel ischemia after takedown of adhesions. 4. Lateral aspect of the left lobe of the liver extremely devascularized after dissection. SECONDARY DIAGNOSES: 1. Morbid obesity. 2. Personality disorder. 3. History of restless legs syndrome. 4. Chronic low back pain. 5. Gastroesophageal reflux disease with large paraesophageal hernia. OPERATIVE PROCEDURES: Exploratory laparotomy with: 1. Esophagogastrectomy with Marie-en-Y esophagojejunostomy. 2. Repair of recurrent paraesophageal diaphragmatic hernia. 3. Partial left hepatic lobectomy. 4. Small bowel resection. 5. Placement of Interceed mesh to limit recurrent adhesion formation. SUMMARY: A 65-year-old female presenting with severe ongoing reflux. She is status post previous Marie-en-Y gastric bypass and then reversal of that around 2009, developing at this point severe reflux disease with recurrent hiatal hernia. On the day of exploration, the patient was noted to require esophagogastrectomy as the area around the previous gastrogastric anastomosis was quite ischemic after takedown of adhesions. The left lobe of the liver was also densely adherent. A portion of this was resected along with a segment of small bowel. Postoperatively, at this point, the patient has done quite well. She had some underlying COPD, but she will be getting through that fairly well. She will be sent home on a step-2 diet until after the 1st appointment. She will be instructed to stay on the step-2 diet until 10/02/2020 and then begin some soft solids. She will continue her home medications other than we will stop the Nexium, and she will be given Dilaudid 2 mg q.4 hours p.r.n. pain and Tylenol 650 p.o. q.6 hours p.r.n. pain as well. The Dilaudid prescription will be for 40 tablets, and she will be following up with Marguerite Farias in [facility] on 09/23/2020. /[id number]
--- NOTE | 2020-09-27 13:38 | OR ---
DATE OF PROCEDURE: 09/13/2020 SURGEON: Chino Vila MD PREOPERATIVE DIAGNOSIS: Severe gastroesophageal reflux disease with recurrent paraesophageal diaphragmatic hernia. POSTOPERATIVE DIAGNOSES: 1. Severe gastroesophageal reflux disease with recurrent paraesophageal diaphragmatic hernia. 2. Gastric cardia at esophagogastric junction nonusable for proximal anastomotic site. 3. Very extensive intraabdominal adhesions. 4. Section of small bowel ischemic after takedown of adhesions. 5. Lateral aspect of the left lobe of liver extensively devascularized after dissection from adjacent adherent structures. OPERATIVE PROCEDURES: Exploratory laparotomy with lysis of extensive adhesions and: 1. Esophagogastrectomy with Marie-en-Y esophagojejunostomy. 2. Repair of recurrent paraesophageal diaphragmatic hernia (04529). 3. Partial left hepatic lobectomy (74557). 4. Small bowel resection (04273). 5. Placement of Interceed mesh to limit recurrent adhesion formation between pelvic and abdominal wall and underlying viscera (20097). ANESTHESIA: General. INSPECTOR FIBROUS WALLBOARD: Marguerite Farias PA-C INDICATIONS FOR PROCEDURE: This is a 65-year-old female who over 10 years ago had sequentially an open Marie-en-Y gastric bypass. This was associated with persistent stricturing, and the surgery team in the [facility] elected at that point to reverse the gastric bypass. She presents now with a very large recurrent paraesophageal hernia with this having been repaired in the past. The plan is to proceed with an open laparotomy with repair of paraesophageal diaphragmatic hernia. We will concurrently proceed with a high partial gastrectomy with Marie-en-Y gastrojejunostomy, but at times in this situation, the gastric cardia and esophagogastric junction are not felt to be safely used for the proximal anastomosis and the final level of resection is within the distal esophagus was gone over with the patient. Should this occur, she is aware this physiologically is not significantly different from a gastric bypass with a tiny gastric pouch. Otherwise, potential risks of the procedure including bleeding, infection, injury to underlying viscera, and leaks from various GI tract closures as well as possibility of cardiopulmonary, septic, or hemorrhagic complications leading to were discussed, and the patient wishes to proceed. DETAILS OF PROCEDURE: The patient was taken to the operating room and placed in a supine position. After general endotracheal anesthesia was induced, Stewart catheter was inserted, and the abdomen prepped and draped. The previous midline incision was then reused and carried down through the skin and subcutaneous tissue. This involved removal of some white scar in the upper midline at the skin level. The incision was carried down through the previous fascial closure. Some old Prolene stitches were removed during the course of the dissection. Upon entering the peritoneal cavity, the patient was noted to have quite florid dense adhesions throughout the upper half of the abdomen. Over an extended period of time, these were taken down. After completion of the takedown of adhesions, the left lobe of the liver was noted to be extremely devascularized as it had been densely adherent to the liver, underlying stomach, and retroperitoneal surfaces. This area was then resected with a JANETH stapler. An Tiesha tube was then placed orally per Anesthesia to help delineate the distal esophagus and proximal stomach. Those areas were then dissected free using a combination of cautery and stapled dissection as well as considerable digital manipulation of the tissues. Once the dissection was completed, it was quite evident that the area around the esophagogastric junction was unsafe to use for proximal anastomosis. This was extremely thinned out and was very close to the previous gastrogastrostomy. These were taken out during the gastric bypass several years ago. Given this, we elected then to proceed with a distal esophageal resection, i.e., esophagogastrectomy. After the Tiesha tube was pulled back, the esophagus was divided with 2 firings of the JANETH black loads. The tissue at this level appeared to be well vascularized and viable. The proximal stomach was then resected as well with a combination of JANETH black and purple loads, and the specimens eventually came out and more than one segment was delivered from the field. The patient had quite a bit of the gastric cardia prolapsing posterior to the esophagogastric junction at the time of the dissection, i.e., bulk of the paraesophageal hernia was prolapse of that proximal stomach posteriorly. After that had been reduced and the resection completed, the diaphragmatic hernia was then repaired posteriorly with crural stitches of 0 Ethibond stitch reinforced with PTFE pledgets. At this point, the ligament of Treitz was identified and the small bowel was traced out to 100 cm distal to that point and was divided transversely with JANETH stapler. This level was selected as the bowel in this region had become somewhat devascularized secondary to the dissection of adhesions previously, and a segment of the small bowel was resected. The nonviable more distal small bowel was then traced out an additional 150 cm where the side-to- side enteroenterostomy was accomplished with internal firing of the Endo-JANETH 60 mm stapler. Common opening was then closed transversely with same stapler. Angles were anastomosed and mesenteric defect approximated with some 3-0 Vicryl stitch. A retrocolic tunnel through the transverse colon mesentery was accomplished with a combination of cautery and blunt dissection. This allowed the Marie limb to be mobilized up to the level of the divided distal esophagus without difficulty. We had hoped earlier that we might be able to use a 28 mm EEA stapler if the anastomosis was within the stomach. This obviously was not in play here, and the anvil of a 25 mm EEA stapler was attached to Paicines sump type tube. The latter was brought down through the mouth and taken out through small opening in the divided distal esophagus. The main body of EEA staplers was then brought through an opening in the Marie limb where the small bowel was brought up through the esophagus, and the stapler was then fired thus creating the esophagojejunostomy. Upon removal of the stapler, double donuts of mucosa were noted within it, and the small bowel was closed off with a vascular staple line. Esophagojejunostomy was then reinforced on its anterior two-thirds of its circumference with a running 3-0 Vicryl seromuscular stitch and then fibrin sealant. The point where the small bowel passed through the transverse mesocolon was then reinforced with seromuscular stitch small bowel and adjacent colonic mesentery. The abdomen was then irrigated with antibiotic-containing saline solution. Two Ketan-Jett drains were then placed through stab wounds in the left subcostal area and positioned around area of esophagojejunostomy. The midline fascia was then approximated with #2 Vicryl stitch, the subcutaneous tissue with 2 layers of 3-0 and 4- 0 Vicryl stitch, and the skin with elsie. Drains were affixed to skin with some 4-0 Vicryl stitch, and the patient was taken to the recovery room in satisfactory condition. There were no evident complications. Physician assistant production editor, Marguerite Farias PA-C, played an essential role in assisting in this case, helping to position the patient, and retract structures as needed as well as suturing and cutting sutures when indicated. Her presence improved patient safety and decreased operative time. Chino Vila MD /[id number]
== END 2020-09-18 09:36 | disposition home or self-care (01) | DRG 326 ==
LOC: JP.SDS 05:32 → JP.MS 05:32 → EDSTATUS 12:25 → JP.ICU 13:38 → JP.MS 19:00
PROVIDERS: ADMIT Surgery; ATTEND Surgery
PROC: 0D150ZA Bypass Esophagus to Jejunum, Open Approach (ICD-10-PCS; principal; 2020-09-13)
PROC: 0BQT0ZZ Repair Diaphragm, Open Approach (ICD-10-PCS; 2020-09-13)
PROC: 0FB20ZZ Excision of Left Lobe Liver, Open Approach (ICD-10-PCS; 2020-09-13)
PROC: 0DB80ZZ Excision of Small Intestine, Open Approach (ICD-10-PCS; 2020-09-13)
PROC: 0DB30ZZ Excision of Lower Esophagus, Open Approach (ICD-10-PCS; 2020-09-13)
PROC: 0DB60ZZ Excision of Stomach, Open Approach (ICD-10-PCS; 2020-09-13)
PROC: 3E0M05Z Introduction of Adhesion Barrier into Peritoneal Cavity, Open Approach (ICD-10-PCS; 2020-09-13)
DX: K21.9 Gastro-esophageal reflux disease without esophagitis (principal); K55.019 Acute (reversible) ischemia of small intestine, extent unspecified; Z68.41 Body mass index [BMI] 40.0-44.9, adult; K55.9 Vascular disorder of intestine, unspecified; K44.9 Diaphragmatic hernia without obstruction or gangrene; K66.0 Peritoneal adhesions (postprocedural) (postinfection); E66.01 Morbid (severe) obesity due to excess calories; F60.9 Personality disorder, unspecified; G25.81 Restless legs syndrome; G89.29 Other chronic pain; M54.5 Low back pain; J44.9 Chronic obstructive pulmonary disease, unspecified; F32.9 Major depressive disorder, single episode, unspecified; K90.0 Celiac disease; K31.9 Disease of stomach and duodenum, unspecified; F17.210 Nicotine dependence, cigarettes, uncomplicated; M81.0 Age-related osteoporosis without current pathological fracture; Z90.49 Acquired absence of other specified parts of digestive tract; Z98.890 Other specified postprocedural states; I25.2 Old myocardial infarction; Z98.84 Bariatric surgery status; Z90.89 Acquired absence of other organs; Z79.82 Long term (current) use of aspirin; Z79.899 Other long term (current) drug therapy; Z88.5 Allergy status to narcotic agent
CPT/HCPCS: 36415; 74240; 74240-26; 80048; 80053; 83735; 83880; 83970; 84100; 85025; 85027; 86850; 86900; 86901; 88305; 88307; 88313; 93005; 94640; 94762; 97140-GP; 97162-GP; 97530-GP; A9270-GY; C9113; J0171; J0330; J0694; J1100; J1170; J1644; J2060; J2185; J2405; J2704; J2710; J2795; J3010; J3410; J3411; J3420; J3475; J3490; J7030; J7050; J7120; J7121; J7620-GY; P9047; Q9967

== ENCOUNTER 2021-12-23 14:08 | Emergency (ER) | payer MEDICARE, MEDICAID | END 2021-12-23 15:43 | disposition left against medical advice (07) | LOC: JP.ED 14:08 | DX: Z53.21 Procedure and treatment not carried out due to patient leaving prior to being seen by health care provider (principal) ==

== ENCOUNTER 2022-10-10 11:42 | Emergency (ER) | payer MEDICARE, MEDICAID ==
[2022-10-10] MEDS ORDERED: Acetaminophen 325 MG Tab, 50 Tab Bulk Bottle PO ONE (13:25)
[2022-10-10 13:36] LABS: HEMOGLOBIN 12.1 g/dL (11.2-15.5); MEAN CORPUSCULAR HEMOGLOBIN 32.9 pg (31.6-35.5); MEAN CORPUSCULAR HGB CONC 32.7 g/dL (31.6-35.5); MEAN CORPUSCULAR VOLUME 100.5 fL (81.4-99.0); RED BLOOD CELL COUNT 3.68 M/uL (3.77-5.24); WHITE BLOOD CELL COUNT,WBC 5.5 K/uL (3.2-11.0)
[2022-10-10] MEDS ORDERED: Acetaminophen 325 MG Tab PO ONE (13:43)
[2022-10-10 13:53] LABS: PROTHROMBIN TIME 10.4 sec (9.2-10.6)
[2022-10-10 13:55] LABS: APPEARANCE,URINE SLIGHTLY CLOUDY (CLEAR); BILIRUBIN,URINE NEGATIVE (NEGATIVE); COLOR,URINE YELLOW (YELLOW); GLUCOSE,URINE NEGATIVE (NEGATIVE); KETONES,URINE NEGATIVE (NEGATIVE); LEUKOCYTE ESTERASE,URINE SMALL (NEGATIVE); NITRITE,URINE NEGATIVE (NEGATIVE); OCCULT BLOOD,URINE TRACE-INTACT (NEGATIVE); PROTEIN,URINE NEGATIVE (NEGATIVE); UROBILINOGEN,URINE 0.2 EU/dL (0.2-1.0)
[2022-10-10 13:57] LABS: ALANINE AMINOTRANSFERASE,ALT 39 U/L (12-78); ALBUMIN 2.8 g/dL (3.4-5.0); ALKALINE PHOSPHATASE 131 U/L (46-116); ANION GAP 5.8 mmol/L (5.0-14.0); ASPARTATE AMNIOTRANSFERASE,AST 27 U/L (15-37); BILIRUBIN TOTAL 0.4 mg/dL (0.2-1.0); BLOOD UREA NITROGEN,BUN 11 mg/dL (7-18); CALCIUM 8.4 mg/dL (8.5-10.1); CARBON DIOXIDE,CO2 28 mmol/L (21-32); CHLORIDE,CL 107 mmol/L (100-108); CREATININE 0.7 mg/dL (0.6-1.0); EST CRCL DRUG DOSING (CG) 62.53 mL/min; ESTIMATED GFR 95 mL/min (>60); GLUCOSE RANDOM 72 mg/dL (74-106); POTASSIUM,K 3.6 mmol/L (3.6-5.2); PROTEIN TOTAL,TP 5.7 g/dL (6.4-8.2); SODIUM,NA 141 mmol/L (140-148)
[2022-10-10 13:58] LABS: AMORPHOUS SEDIMENT,URINE MODERATE; BACTERIA,URINE MODERATE; EPITHELIAL CELLS,URINE MODERATE; MUCUS,URINE FEW; WBC,URINE 20-30 (0-5)
[2022-10-10] MEDS ORDERED: Ketorolac 30 MG/ML SDV IVPUSH ONE (15:55)
[2022-10-10] MEDS ORDERED: Sodium Chloride 0.9% 1,000 ML IV SCH (16:00)
[2022-10-10] MEDS ORDERED: Levofloxacin/Dextrose 5%-Water 250 MG in Premix Bag 1 BAG IV ONE (16:14)
[2022-10-10 18:49] VITALS: BP 154/74; PULSE 78
== END 2022-10-10 18:45 | disposition critical access hospital (66) ==
LOC: JP.ED 11:42
DX: N13.2 Hydronephrosis with renal and ureteral calculous obstruction (principal); N30.00 Acute cystitis without hematuria; I25.2 Old myocardial infarction; J44.9 Chronic obstructive pulmonary disease, unspecified; K21.9 Gastro-esophageal reflux disease without esophagitis; Z72.0 Tobacco use; Z88.5 Allergy status to narcotic agent; Z79.82 Long term (current) use of aspirin; Z79.899 Other long term (current) drug therapy
CPT/HCPCS: 36415; 71250; 74176; 80053; 81001; 83605; 83690; 85027; 85610; 87086; 87088; 87186; 96361; 96365; 96375; 99285; A9270; J1885; J1956; J7030

== ENCOUNTER 2022-11-05 10:05 | Emergency (ER) | payer MEDICARE, MEDICAID ==
[2022-11-05] MEDS ORDERED: Prochlorperazine 10 MG/2 ML SDV IVPUSH ONE (11:11)
[2022-11-05] MEDS ORDERED: Sodium Chloride 0.9% 10 ML Syringe FLUSH PRN (11:12)
[2022-11-05 11:21] LABS: BASOPHILS ABSOLUTE AUTO 0.03 K/uL (0.00-0.10); BASOPHILS PERCENT AUTO 0.6 % (0.1-1.3); HEMATOCRIT 38.3 % (34.3-46.0); HEMOGLOBIN 12.5 g/dL (11.2-15.5); IMMATURE GRAN PERCENT AUTO 0.2 % (0.0-0.7); LYMPHOCYTES PERCENT AUTO 38.2 % (11.4-47.7); MEAN CORPUSCULAR HEMOGLOBIN 31.7 pg (31.6-35.5); MEAN CORPUSCULAR HGB CONC 32.6 g/dL (31.6-35.5); MEAN CORPUSCULAR VOLUME 97.2 fL (81.4-99.0); MONOCYTES ABSOLUTE AUTO 0.41 K/uL (0.20-0.90); MONOCYTES PERCENT AUTO 8.2 % (3.3-12.6); NEUTROPHILS ABSOLUTE AUTO 2.52 K/uL (1.0-7.6); NEUTROPHILS PERCENT AUTO 50.8 % (40.0-78.1); PLATELET COUNT,PLT 248 K/uL (130-375); RED BLOOD CELL COUNT 3.94 M/uL (3.77-5.24)
[2022-11-05 11:22] LABS: IMMATURE GRAN ABSOLUTE AUTO 0.01 K/uL (0.00-0.23)
[2022-11-05 11:39] LABS: BLOOD UREA NITROGEN,BUN 13 mg/dL (7-18); CALCIUM 8.4 mg/dL (8.5-10.1); CARBON DIOXIDE,CO2 27 mmol/L (21-32); CHLORIDE,CL 107 mmol/L (100-108); CREATININE 0.7 mg/dL (0.6-1.0); ESTIMATED GFR 95 mL/min (>60); GLUCOSE RANDOM 82 mg/dL (74-106); POTASSIUM,K 4.2 mmol/L (3.6-5.2); SODIUM,NA 139 mmol/L (140-148)
[2022-11-05 11:40] LABS: ANION GAP 9.2 mmol/L (5.0-14.0); C-REACTIVE PROTEIN < 0.05 mg/dL (0.0-0.3)
[2022-11-05 12:10] LABS: SEDIMENTATION RATE MANUAL 16 mm/hr (0-25)
[2022-11-05 12:31] VITALS: BP 156/90; PULSE 55
== END 2022-11-05 12:35 | disposition home or self-care (01) ==
LOC: JP.ED 10:05
DX: G43.019 Migraine without aura, intractable, without status migrainosus (principal); R11.0 Nausea; J44.9 Chronic obstructive pulmonary disease, unspecified; F17.210 Nicotine dependence, cigarettes, uncomplicated; Z88.5 Allergy status to narcotic agent; Z88.6 Allergy status to analgesic agent; Z90.49 Acquired absence of other specified parts of digestive tract
CPT/HCPCS: 36415; 70450; 80048; 85025; 85651; 86140; 96374; 99284; J0780; J3490

== ENCOUNTER 2023-06-27 08:17 | Emergency (ER) | payer MEDICAID, MEDICARE ==
[2023-06-27] MEDS: Sodium Chloride 0.9% 10 ML Syringe FLUSH PRN (09:21)
[2023-06-27] MEDS: Aspirin 81 MG Tab.Chew PO ONE (09:21)
[2023-06-27 09:24] LABS: BASOPHILS PERCENT AUTO 0.3 % (0.1-1.3); EOSINOPHILS ABSOLUTE AUTO 0.06 K/uL (0.00-0.40); HEMATOCRIT 41.1 % (34.3-46.0); HEMOGLOBIN 13.5 g/dL (11.2-15.5); IMMATURE GRAN PERCENT AUTO 0.3 % (0.0-0.7); LYMPHOCYTES ABSOLUTE AUTO 1.65 K/uL (0.8-3.3); LYMPHOCYTES PERCENT AUTO 27.9 % (11.4-47.7); MEAN CORPUSCULAR HEMOGLOBIN 31.7 pg (31.6-35.5); MEAN CORPUSCULAR HGB CONC 32.8 g/dL (31.6-35.5); MEAN CORPUSCULAR VOLUME 96.5 fL (81.4-99.0); MONOCYTES ABSOLUTE AUTO 0.43 K/uL (0.20-0.90); MONOCYTES PERCENT AUTO 7.3 % (3.3-12.6); NEUTROPHILS ABSOLUTE AUTO 3.74 K/uL (1.0-7.6); NEUTROPHILS PERCENT AUTO 63.2 % (40.0-78.1); PLATELET COUNT,PLT 195 K/uL (130-375); RED BLOOD CELL COUNT 4.26 M/uL (3.77-5.24); WHITE BLOOD CELL COUNT,WBC 5.9 K/uL (3.2-11.0)
[2023-06-27 09:26] LABS: BASOPHILS ABSOLUTE AUTO 0.02 K/uL (0.00-0.10); IMMATURE GRAN ABSOLUTE AUTO 0.02 K/uL (0.00-0.23)
[2023-06-27 09:44] LABS: PROTHROMBIN TIME 10.4 sec (9.2-10.6); PTT,PARTIAL THROMBOPLSTIN TIME 27.2 sec (21.8-27.3)
[2023-06-27 09:47] LABS: ANION GAP 11.1 mmol/L (5.0-14.0); BLOOD UREA NITROGEN,BUN 13 mg/dL (7-18); CALCIUM 9.2 mg/dL (8.5-10.1); CARBON DIOXIDE,CO2 27 mmol/L (21-32); CHLORIDE,CL 107 mmol/L (100-108); CREATININE 0.7 mg/dL (0.6-1.0); EST CRCL DRUG DOSING (CG) 61.68 mL/min; ESTIMATED GFR 95 mL/min (>60); GLUCOSE RANDOM 78 mg/dL (74-106); SODIUM,NA 145 mmol/L (140-148)
[2023-06-27 09:50] LABS: TROPONIN I HIGH SENSITIVITY < 4.0 pg/mL (<=60.3)
[2023-06-27 11:35] VITALS: BP 124/72; PULSE 61
== END 2023-06-27 12:27 | disposition home or self-care (01) ==
LOC: JP.ED 08:17
DX: R07.89 Other chest pain (principal); F17.200 Nicotine dependence, unspecified, uncomplicated; I25.2 Old myocardial infarction; J44.9 Chronic obstructive pulmonary disease, unspecified; Z90.49 Acquired absence of other specified parts of digestive tract; Z79.82 Long term (current) use of aspirin; Z79.899 Other long term (current) drug therapy; Z88.5 Allergy status to narcotic agent
CPT/HCPCS: 36415; 71045; 80048; 84484; 85025; 85610; 85730; 93005; 99285; A9270; J3490; 93010

== ENCOUNTER 2024-01-06 10:16 | Emergency (ER) | payer OTHER, MEDICARE ==
[2024-01-06] MEDS: Ibuprofen 600 MG Tab PO ONE (11:44)
[2024-01-06] MEDS: Acetaminophen/HYDROcodone 325-5 MG Tab PO ONE (12:35)
[2024-01-06] MEDS: Acetaminophen/HYDROcodone 325-7.5 MG Tab PO ONE (12:36)
[2024-01-06 14:19] VITALS: BP 138/89; PULSE 69
== END 2024-01-06 15:52 | disposition home or self-care (01) ==
LOC: JP.ED 10:16
DX: S82.041A Displaced comminuted fracture of right patella, initial encounter for closed fracture (principal); I25.2 Old myocardial infarction; J45.909 Unspecified asthma, uncomplicated; K21.9 Gastro-esophageal reflux disease without esophagitis; F17.210 Nicotine dependence, cigarettes, uncomplicated; Z79.899 Other long term (current) drug therapy; Z79.82 Long term (current) use of aspirin; Z88.5 Allergy status to narcotic agent; W19.XXXA Unspecified fall, initial encounter; Y99.0 Civilian activity done for income or pay
CPT/HCPCS: 70450; 73030; 73562; 73700; 76377; 99284; A9270; 99283

== ENCOUNTER 2024-06-22 06:54 | Day surgery (SDC) | payer MEDICARE, MEDICAID ==
[2024-06-22] MEDS: Lactated Ringers 1,000 ML IV SCH (07:25)
[2024-06-22] MEDS ORDERED: fentaNYL 50 MCG/ML SDV ONE (07:34)
[2024-06-22] MEDS ORDERED: Midazolam 1 MG/ML 2 ML SDV ONE (07:34)
[2024-06-22] MEDS ORDERED: Propofol 200 MG/20 ML SDV ONE ×2 (07:34→07:49)
[2024-06-22 10:02] VITALS: BP 132/70; PULSE 52
== END 2024-06-22 10:00 | disposition home or self-care (01) ==
LOC: JP.SDS 06:54
PROVIDERS: ATTEND Surgery
DX: D12.0 Benign neoplasm of cecum (principal); D12.2 Benign neoplasm of ascending colon; K57.30 Diverticulosis of large intestine without perforation or abscess without bleeding; R10.9 Unspecified abdominal pain; K21.9 Gastro-esophageal reflux disease without esophagitis; F33.0 Major depressive disorder, recurrent, mild; E78.00 Pure hypercholesterolemia, unspecified; J44.9 Chronic obstructive pulmonary disease, unspecified; E66.01 Morbid (severe) obesity due to excess calories; F17.200 Nicotine dependence, unspecified, uncomplicated; Z79.82 Long term (current) use of aspirin; Z79.899 Other long term (current) drug therapy; Z88.5 Allergy status to narcotic agent; Z88.8 Allergy status to other drugs, medicaments and biological substances; Z80.0 Family history of malignant neoplasm of digestive organs
CPT/HCPCS: 00813; 43235; 45385; J2250; J2704; J3010; J7120

== ENCOUNTER 2024-09-23 09:54 | Day surgery (SDC) | payer OTHER, MEDICARE ==
[~2024-09-23 09:54] MED LIST changes: +Dexamethasone 4 MG/ML SDV ONE; +Ketorolac 30 MG/ML SDV ONE; +Midazolam 1 MG/ML 2 ML SDV ONE; +Ondansetron 4 MG/2 ML SDV ONE; +Propofol 200 MG/20 ML SDV ONE; -Scopolamine 1.5 MG Transdermal Patch TOP ONE; +fentaNYL 100 MCG/2 ML SDV ONE
[2024-09-23 10:32] LABS: BASOPHILS ABSOLUTE AUTO 0.03 K/uL (0.00-0.10); BASOPHILS PERCENT AUTO 0.6 % (0.1-1.3); EOSINOPHILS ABSOLUTE AUTO 0.05 K/uL (0.00-0.40); EOSINOPHILS PERCENT AUTO 0.9 % (0.0-5.4); HEMATOCRIT 43.6 % (34.3-46.0); HEMOGLOBIN 13.9 g/dL (11.2-15.5); IMMATURE GRAN PERCENT AUTO 0.2 % (0.0-0.7); LYMPHOCYTES ABSOLUTE AUTO 1.52 K/uL (0.8-3.3); LYMPHOCYTES PERCENT AUTO 28.5 % (11.4-47.7); MEAN CORPUSCULAR HEMOGLOBIN 31.8 pg (31.6-35.5); MEAN CORPUSCULAR HGB CONC 31.9 g/dL (31.6-35.5); MEAN CORPUSCULAR VOLUME 99.8 fL (81.4-99.0); MONOCYTES PERCENT AUTO 7.5 % (3.3-12.6); NEUTROPHILS ABSOLUTE AUTO 3.32 K/uL (1.0-7.6); NEUTROPHILS PERCENT AUTO 62.3 % (40.0-78.1); PLATELET COUNT,PLT 239 K/uL (130-375); RED BLOOD CELL COUNT 4.37 M/uL (3.77-5.24); WHITE BLOOD CELL COUNT,WBC 5.3 K/uL (3.2-11.0)
[2024-09-23 10:36] LABS: IMMATURE GRAN ABSOLUTE AUTO 0.01 K/uL (0.00-0.23)
[2024-09-23 10:47] LABS: ANION GAP 8.6 mmol/L (5.0-14.0); BLOOD UREA NITROGEN,BUN 13 mg/dL (7-18); CALCIUM 8.8 mg/dL (8.5-10.1); CARBON DIOXIDE,CO2 28 mmol/L (21-32); CHLORIDE,CL 107 mmol/L (100-108); CREATININE 0.7 mg/dL (0.6-1.0); ESTIMATED GFR 94 mL/min (>60); GLUCOSE RANDOM 85 mg/dL (74-106); POTASSIUM,K 4.2 mmol/L (3.6-5.2); SODIUM,NA 144 mmol/L (140-148)
[2024-09-23] MEDS: Nozin Nasal Sanitizer NASBOTH ONE (11:05)
[2024-09-23] MEDS: Lactated Ringers 1,000 ML IV SCH (11:17)
[2024-09-23] MEDS: ceFAZolin 2 GM in Premix Bag 1 BAG IV ONE (12:20)
[2024-09-23] MEDS ORDERED: fentaNYL 100 MCG/2 ML SDV ONE (12:40)
[2024-09-23] MEDS: Bupivacaine 0.5% 50 ML MDV ONE (12:45)
[2024-09-23] MEDS ORDERED: Acetaminophen/HYDROcodone 325-5 MG Tab PO ONE (14:15)
[2024-09-23 14:29] VITALS: BP 175/92; PULSE 64
== END 2024-09-23 14:29 | disposition home or self-care (01) ==
LOC: JP.SDS 09:54
PROVIDERS: ATTEND Specialist
DX: S83.241A Other tear of medial meniscus, current injury, right knee, initial encounter (principal); S83.281A Other tear of lateral meniscus, current injury, right knee, initial encounter; M94.261 Chondromalacia, right knee; J44.9 Chronic obstructive pulmonary disease, unspecified; X58.XXXA Exposure to other specified factors, initial encounter
CPT/HCPCS: 29881; 36415; 80048; 85025; 93005; 93010; A9270; J0665; J0690; J1100; J1885; J2250; J2405; J2704; J3010; J7120; 01400-QZ

== ENCOUNTER 2025-03-30 22:05 | Emergency (ER) | payer MEDICARE ==
[2025-03-30 22:16] VITALS: PULSE 71
[2025-03-30 22:22] LABS: BASOPHILS ABSOLUTE AUTO 0.04 K/uL (0.00-0.10); BASOPHILS PERCENT AUTO 0.6 % (0.1-1.3); EOSINOPHILS ABSOLUTE AUTO 0.11 K/uL (0.00-0.40); EOSINOPHILS PERCENT AUTO 1.6 % (0.0-5.4); IMMATURE GRAN ABSOLUTE AUTO 0.03 K/uL (0.00-0.23); IMMATURE GRAN PERCENT AUTO 0.4 % (0.0-0.7); LYMPHOCYTES ABSOLUTE AUTO 2.30 K/uL (0.8-3.3); LYMPHOCYTES PERCENT AUTO 34.2 % (11.4-47.7); MONOCYTES ABSOLUTE AUTO 0.66 K/uL (0.20-0.90); MONOCYTES PERCENT AUTO 9.8 % (3.3-12.6); NEUTROPHILS ABSOLUTE AUTO 3.59 K/uL (1.0-7.6); NEUTROPHILS PERCENT AUTO 53.4 % (40.0-78.1); PLATELET COUNT,PLT 212 K/uL (130-375); RED BLOOD CELL COUNT 4.47 M/uL (3.77-5.24); WHITE BLOOD CELL COUNT,WBC 6.7 K/uL (3.2-11.0)
[2025-03-30 22:36] LABS: BLOOD UREA NITROGEN,BUN 15.0 mg/dL (7-18); CARBON DIOXIDE,CO2 20.0 mmol/L (21-32); CHLORIDE,CL 107.0 mmol/L (100-108); CREATININE 0.6 mg/dL (0.6-1.0); EST CRCL DRUG DOSING (CG) 69.99 mL/min; ESTIMATED GFR 97.0 mL/min (>60); GLUCOSE RANDOM 92.0 mg/dL (74-106); POTASSIUM,K 3.5 mmol/L (3.6-5.2); SODIUM,NA 143.0 mmol/L (140-148)
[2025-03-31] MEDS: fentaNYL 50 MCG/ML SDV IVPUSH ONE (00:17)
[2025-03-31] MEDS: Ondansetron 4 MG Tab.DIS PO ONE (00:26)
[2025-03-31] MEDS: Ketorolac 15 MG/ML SDV IVPUSH ONE (00:45)
[2025-03-31 00:48] VITALS: BP 141/83
== END 2025-03-31 01:30 | disposition home or self-care (01) ==
LOC: JP.ED 22:05
DX: S06.0XAA Concussion with loss of consciousness status unknown, initial encounter (principal); S70.01XA Contusion of right hip, initial encounter; S20.211A Contusion of right front wall of thorax, initial encounter; S50.01XA Contusion of right elbow, initial encounter; F10.120 Alcohol abuse with intoxication, uncomplicated; I25.2 Old myocardial infarction; J45.909 Unspecified asthma, uncomplicated; Z90.49 Acquired absence of other specified parts of digestive tract; Z79.899 Other long term (current) drug therapy; Z79.82 Long term (current) use of aspirin; Y90.7 Blood alcohol level of 200-239 mg/100 ml; Z88.5 Allergy status to narcotic agent; W01.198A Fall on same level from slipping, tripping and stumbling with subsequent striking against other object, initial encounter
CPT/HCPCS: 36415; 70450; 71045; 71045-26; 72125; 72192; 76377; 80048; 80307; 85025; 96374; 96375; 99285-25; J1885; J3010; Q0162